=== PATIENT | female | born 1975 ===

== ENCOUNTER 2020-05-04 12:13 | Emergency (ER) | payer OTHER, SELFPAY ==
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
[2020-05-04 12:25] VITALS: BP 129/74; PULSE 69; RESP 18; TEMP 37.1; O2SAT 100
--- NOTE | 2020-05-04 15:07 | PC.NURSE ---
1225 wound to left medial proximal lower leg
== END 2020-05-04 13:50 | disposition home or self-care (01) ==
PROVIDERS: Emergency Provider Nurse Practitioner; PCP Internal Medicine
DX: L08.9 Local infection of the skin and subcutaneous tissue, unspecified (principal); S71.101A Unspecified open wound, right thigh, initial encounter; S81.801A Unspecified open wound, right lower leg, initial encounter; V86.06XA Driver of dirt bike or motor/cross bike injured in traffic accident, initial encounter; S89.91XA Unspecified injury of right lower leg, initial encounter
CPT/HCPCS: 73590; 73610; 99214; G0463

== ENCOUNTER 2021-03-14 14:42 | Emergency (ER) | payer OTHER, SELFPAY ==
[2021-03-14 14:53] VITALS: BP 113/69; PULSE 60; RESP 16; TEMP 37.4; O2SAT 100
--- NOTE | 2021-03-14 14:58 | ED.SKABFB ---
HPI - Skin/Abscess/Foreign Bdy General Chief complaint: Extremity Injury, Lower Stated complaint: left leg welt Time Seen by Provider: 03/14/21 14:58 Source: patient Mode of arrival: ambulatory Limitations: no limitations History of Present Illness HPI narrative: Patient presents with a itchy rash to the back of her ankle. Patient states she was taking blackberries and capris and noticed a rash shortly afterwards. Patient states the rash is spreading to both of her upper arms. MD complaint: rash Related Data Home Medications Medication Instructions Recorded Confirmed norethindrone-e.estradiol-iron 1 tablet PO DAILY 05/04/20 03/14/21 [] Allergies Allergy/AdvReac Type Severity Reaction Status Date / Time No Known Allergies Allergy Verified 03/14/21 15:14 Review of Systems Review of Systems: Narrative: CONSTITUTIONAL: Denies fever, chills, or sweats. EYES: Denies visual changes, redness, or discharge. ENT: Denies rhinorrhea, congestion, sore throat, or otalgia. CARDIOVASCULAR: Denies chest pain, palpitations, or edema. RESPIRATORY: Denies cough or dyspnea. GASTROINTESTINAL: Denies abdominal pain, nausea, vomiting, or diarrhea. GENITOURINARY: Denies dysuria or hematuria. SKIN: Denies rash or itching. MUSCULOSKELETAL: Denies back pain, joint pain, or myalgia. NEUROLOGIC: Denies headache, numbness, or weakness. PSYCHIATRIC: Denies anxiety or depression. [facility] Family History Family History (Updated 03/18/16 @ 23:19 by DOCTOR UNKNOWN) Mother Family history of malignant neoplasm of breast in first degree relative Social History Social History Smoking status: Former smoker Alcohol intake: never Comments At time of signature, agree with nursing past medical, surgical, social and family history. There is no relevant family history pertinent to the presenting complaint Exam Narrative: Exam Narrative: GENERAL: Well-appearing, well-nourished, and in no acute distress. HEAD: Normocephalic, atraumatic. EYES: PERRLA and EOMI. ENT: Nares clear, no rhinorrhea or epistaxis. Mucous membranes moist. NECK: Supple. CHEST: Clear to auscultation. No respiratory distress. HEART: Regular rate and rhythm. No murmur heard. Normal peripheral pulses. ABDOMEN: Soft, nontender, nondistended, normal active bowel sounds. EXTREMITIES: Normal range of motion. No edema. SKIN: Warm, dry, no rash.RASH CONSISTENT WITH RHUS DERMATITIS. LINEAR MUIR WITH WET LIKE APPEARS ON NEW AREAS. DIFFERENT STAGES PRESENT. REDNESS TO LESIONS. NO SIGNS OF INFECTION OR CELLULITIS/ABSCESS. NO VESICLES. NO ULCERATIONS. NO RAISED URTICARIAL LESIONS. NO LESIONS ALONG THE WAISTBAND OR IN WEB SPACES. NO BURROWS. NO PETECHIAE. NEURO: No focal deficits. Alert and oriented x3. Deejay Coma Scale Eye Opening: Spontaneous 4 [place] Coma Scale Motor: Obeys Commands 6 Deejay Coma Scale Verbal: Oriented 5 Deejay Coma Scale Total 15 Course Vital Signs Vital signs: Vital Signs Temperature 37.4 C 03/14/21 14:53 Pulse Rate 60 03/14/21 14:53 Respiratory Rate 16 03/14/21 14:53 Blood Pressure 113/69 03/14/21 14:53 Pulse Oximetry 100 03/14/21 14:53 Temperature 37.4 C 03/14/21 14:53 Pulse Rate 60 03/14/21 14:53 Respiratory Rate 16 03/14/21 14:53 Blood Pressure 113/69 03/14/21 14:53 Pulse Oximetry 100 03/14/21 14:53 MDM - Skin/Abscess/Foreign Bdy Differential Diagnosis Differential diagnosis: Likely abscess of skin or subcutaneous tissue, viral exanthem, dermatophytosis, urticaria, herpes zoster, allergic reaction to drug, eczema, impetigo and contact dermatitis Medical Records Attestation: I reviewed the patient's medical records. Critical Care Time Critical Care Time Critical Care Time: No Discharge Plan Discharge Clinical Impression: Poison shalonda dermatitis Patient Disposition: Home, Self-Care Condition: Stable Instructions: Antibiotic Form Additional Instructions: poisonivy 1. P
== END 2021-03-14 15:22 | disposition home or self-care (01) ==
PROVIDERS: Emergency Provider Nurse Practitioner Family; PCP Internal Medicine
DX: R21 Rash and other nonspecific skin eruption (principal); L23.7 Allergic contact dermatitis due to plants, except food
CPT/HCPCS: 99213; G0463